=== PATIENT | female | born 1955 | race Caucasian/White ===

== ENCOUNTER → 2017-07-03 | Outpatient (CLI) | payer BC, OTHER | LOC: RAD 01:27 | DX: Z12.31 Encounter for screening mammogram for malignant neoplasm of breast (principal) ==

== ENCOUNTER → 2017-09-28 | Outpatient (CLI) | payer BC, OTHER ==
[~2017-09-28] VITALS: Ht 160 cm; Wt 77.1 kg
[~2017-09-28] MED LIST: CENTRUM SILVER1 EAC4 PO; NASACORT10.8 ML NASAL
--- NOTE | ~2017-09-28 | P ---
[facility] [place] [address] PROCEDURE REPORT Name: TERESA PENNINGTON Room #: REG [facility]#: [id number] Admission: 09/28/17 Attend Phys: Adam Albert MD Discharge: Date of : 55 Report #: [id number] THIS REPORT FOR: //name// CC: Adam Delgado MD BRIEF HISTORY: The patient is a 61-year-old woman with a history of a large colon adenoma in the hepatic flexure that was partially removed several months ago. She presents today for completion of polypectomy. PREOPERATIVE DIAGNOSIS: Residual colon polyp. POSTOPERATIVE DIAGNOSES: 1. Colon polyps. 2. Moderate diverticulosis coli, left colon. MEDICATIONS: Deep sedation with propofol per anesthesia. SPECIMENS: 1. Cecal polyp. 2. Hepatic flexure polyp. 3. Proximal ascending colon polyps x 2. ESTIMATED BLOOD LOSS: 5 mL. PROCEDURE: Colonoscopy to cecum and terminal ileum with saline-assisted snare polypectomy and argon plasma coagulation at polypectomy site. FINDINGS: Prior to propofol sedation, procedure of colonoscopy discussed with the patient as well as potential risks and its complications. She indicates she understands and desires to proceed. DESCRIPTION OF PROCEDURE: With the patient in the left lateral decubitus position, digital examination was completed, which revealed no abnormalities. Subsequently, the e[employer] video colonoscope was introduced in the rectum, advanced under direct vision to the cecum. Done with minimal difficulty. The cecum was identified by the ileocecal valve and the appendiceal orifice. I was able to visualize the distal segment of the terminal ileum, which was inspected and noted to be unremarkable. At that point, the scope was slowly withdrawn and careful circumferential views obtained, including retroflexing the scope in the ascending colon. Upon slow withdrawal of the scope, the prep was noted to be good. Mucosa was within normal limits. Normal vascular pattern, normal light reflex. Upon withdrawal of the scope, a diminutive polyp was seen and removed by biopsy from the cecum. In the very proximal ascending colon, 2 polyps were seen. They were flat polyps and elliptical. One was removed by snare polypectomy. The other was removed by cold biopsy forceps. As we withdrew the [facility] [address] [place] [address] PROCEDURE REPORT Name: TERESA PENNINGTON Room #: REG [facility].#: [id number] Admission: 09/28/17 Attend Phys: Adam Albert MD Discharge: Date of : 55 Report #: [id number] scope, the residual polyp and tattoos were seen at the region of the hepatic flexure. There appeared to be a multilobular polyp, which was bulking the center and flat along the edges. Again, this polyp was seen at the point of the previously placed tattoos. Again, it was best seen in the retroflexed position. We then elevated the polyp with saline. We did use hot snare at points, but for the most part, we removed the polyp in multiple fragments with cold snare polypectomy. We removed the bulky elevated portions. I would see this polyp was 2.5 cm in length and at least 1.5 cm in width and was draped over a fold. We used multiple positions, including retroflexion in the ascending colon as well as antegrade viewing from the distal side of the hepatic flexure. Once all the bulky sections were removed, we cleaned up the areas with a cold biopsy forceps. Once it was felt that all visible polyp was removed, we then used argon plasma coagulation at the polypectomy site as well as only borders of the polypectomy. There was good hemostasis. It was felt that a complete polypectomy had been achieved. As we withdrew the scope, no additional polypoid lesions were seen. In the left colon and particularly the distal descending colon, there was moderate diverticular disease and endoscopic evidence of diverticulitis. The scope was withdrawn in the rectum. Upon retroflexion, no abnormalities were seen. Scope was withdrawn. The patient tolerated the procedure well. CONDITION OF THE PATIENT UPON DISCHARGE: Following procedure, the patient was drowsy, arousable and conversant and will be discharged to home when fully ambulatory. INSTRUCTIONS TO THE PATIENT AND FAMILY AT THE TIME OF DISCHARGE: Difficult polypectomy completed today. I will discuss with the patient the potential considerations of post-polypectomy, especially bleeding. She should avoid aspirin for 2 weeks if possible. We will have her return in 1 year to ensure complete removal of the polyp. I might point out that this was a tubular adenoma on previous pathology. Previous colonoscopy was less than a year ago. She is here now due to incomplete polypectomy. Withdrawal time from the cecum including polypectomy time was 58 minutes and 42 seconds. <ELECTRONICALLY SIGNED> By: Adam Albert MD 09/28/17 1533 [id number] 1000 Adam Albert MD /tawanda
--- NOTE | ~2017-09-28 | P ---
[facility] [place] [address] PROCEDURE REPORT Name: MIGUEL VAZQUEZTERESA NEGRONN [id number] Admission: 09/28/17 Attend Phys: Adam Albert MD Discharge: Date of : 55 Report #: [id number] THIS REPORT FOR: //name// CC: Adam Delgado ADDENDUM. I just completed dictation on the patient. The accession number for the report I just dictated is [id number]. I would like to make an addendum and clarify the procedure as I may have misdated. Could you check and make sure that I dictated as follows: The procedure was colonoscopy with snare polypectomy, colonoscopy with biopsy and saline injection of polypectomy site. <ELECTRONICALLY SIGNED> By: Adam Albert MD 09/28/17 1533 [id number] Adam Albert MD /nt
--- NOTE | ~2017-09-28 | S ---
[facility] [place] [address] SURGICAL PATH RPT PROCEDURE Name: TERESA SALINAS Room #: REG [facility].#: [id number] Admission: 09/28/17 Date of : 55 Discharge: Report #: [id number] Path Case #: [id number] PATHOLOGY REPORT COLLECTION DATE: 09/28/2017 RECEIVED DATE: 09/28/2017 SUBMITTING PHYS: Dr. Adam Albert OTHER PHYS: Dr. Aadlgisa Delgado SPECIMEN(S) RECEIVED: A.Cecal polyp B.Polyp at hepatic flexure C.Polyp at proximal ascending colon x2 * * * * * * * * * * * * FINAL DIAGNOSIS: A. Polyp, cecal polyp, endoscopic biopsy: - Minute tubular adenoma. - Negative for high grade dysplasia. B. Polyp, at hepatic flexure, endoscopic biopsy: - Multiple fragments of a tubulovillous adenoma. - Negative for high grade dysplasia. - Few unremarkable mucosal fragments are present (please see comment). C. Polyp, proximal ascending colon x 2, endoscopic biopsy: - Few fragments showing tubular adenoma and other fragments showing hyperplastic polyp. - Negative for high grade dysplasia. COMMENT: Please correlate with endoscopic findings for a complete removal of the tubulovillous adenoma identified at the hepatic flexure. (IUV:db; 10/01/2017) PATHOLOGIST: Linda Neff M.D. REPORT ELECTRONICALLY SIGNED BY: Linda Neff M.D. DATE/TIME: 10/01/2017 14:48 * * * * * * * * * * * * GROSS PATHOLOGY: A. Received in formalin labeled "Teresa Salinas Lynn, cecal polyp" and consists of a 0.3 cm weeks mucosal biopsy which is entirely submitted as A1. B. Received in formalin labeled "Teresa Salinas Lynn, polyp at hepatic flexure" and consists of a1.2 x 1.0 x 0.4 cm aggregate of soft, weeks, polypoid tissue. The specimen is entirely submitted as B1. C. Received in formalin labeled "Teresa Salinas Lynn, polyp [address] [address] SURGICAL PATH RPT PROCEDURE Name: TERESA SALINAS Room #: [facility]#: [id number] Admission: 09/28/17 Date of : 55 Discharge: Report #: [id number] Path Case #: [id number] at proximal ascending colon X2 and consists of 4 weeks mucosal biopsies ranging in size from 0.1 cm to 0.5 cm. The specimen is entirely submitted C1. (AGUSTIN; 09/28/2017) CLINICAL HISTORY: History of polyps INITIAL CPT CODE(S): A; 44963 B; 22154 C; 87440 Professional services performed by [facility] at [address] , [place] [address] Technical services performed by [facility] at [address] [place] [address]., [address], [place] [address]. [facility] [address] [place] [address] PHONE: [phone] DIRECTOR: Surjit Turner M.D. * * * END OF REPORT * * *
== END | disposition home or self-care (01) ==
LOC: GI 06:33
DX: D12.0 Benign neoplasm of cecum (principal); D12.3 Benign neoplasm of transverse colon; D12.2 Benign neoplasm of ascending colon; K63.5 Polyp of colon; K57.30 Diverticulosis of large intestine without perforation or abscess without bleeding; K21.9 Gastro-esophageal reflux disease without esophagitis; Z87.891 Personal history of nicotine dependence; Z79.899 Other long term (current) drug therapy; Z98.890 Other specified postprocedural states
CPT/HCPCS: 62110; 62900

== ENCOUNTER → 2018-07-17 | Outpatient (CLI) | payer BC, OTHER | LOC: RAD 14:16 | DX: Z12.31 Encounter for screening mammogram for malignant neoplasm of breast (principal) ==

== ENCOUNTER → 2021-01-10 | Outpatient (CLI) | payer OTHER, MEDICARE | LOC: NUC 10:15 | PROVIDERS: ATTEND Family Medicine | DX: Z12.31 Encounter for screening mammogram for malignant neoplasm of breast (principal); N95.9 Unspecified menopausal and perimenopausal disorder ==